=== PATIENT | female | born 1960 | race Caucasian/White ===

== ENCOUNTER → 2017-09-04 | Outpatient (CLI) | payer OTHER | LOC: RAD 00:13 | DX: Z12.31 Encounter for screening mammogram for malignant neoplasm of breast (principal) ==

== ENCOUNTER → 2018-11-25 | Outpatient (CLI) | payer OTHER | LOC: RAD 09:27 | DX: Z12.31 Encounter for screening mammogram for malignant neoplasm of breast (principal) ==

== ENCOUNTER → 2018-12-24 | Outpatient (CLI) | payer OTHER | LOC: RAD 10:28 | DX: R05 Cough (principal) ==

== ENCOUNTER → 2019-01-22 | Outpatient (CLI) | payer OTHER ==
--- NOTE | 2019-01-22 13:49 | 2DMMODE ---
[facility] [place] [address] 2 D/M-MODE ECHOCARDIOGRAM Name: SELVINSTEPHYSONIA CARTER Room #: REG [facility]#: [id number] Admission: 01/22/19 Attend Phys: Kishore Blackburn Discharge: Date of : 60 Date of Service: 01/22/19 1349 Report #: [id number] THIS REPORT FOR: //name// APPROVED REPORT Study performed: 01/22/2019 13:18:28 EXAM: Comprehensive 2D, Doppler, and color-flow Echocardiogram Patient Location: Out-Patient Status: routine BSA: 1.74 HR: 61 bpm BP: 118/80 mmHg Rhythm: NSR/PVCs Other Information Study Quality: Good Indications Syncope. Hx: Atrial tach. 2D Dimensions RVDd: 32.27 mm IVSd: 7.67 (7-11mm) LVOT Diam: 21.09 (18-24mm) LVDd: 43.33 mm PWd: 7.63 (7-11mm) LVDs: 33.83 (25-40mm) Aortic Root: 33.09 mm Volumes Left Atrial Volume (Systole) Single Plane 4CH: 41.32 mL Single Plane 2CH: 41.54 mL LA ESV Index: 26.00 mL/m2 Aortic Valve AoV Peak Jone.: 1.15 m/s AO Peak Gr.: 5.33 mmHg LVOT Max P.68 mmHg LVOT Max V: 0.96 m/s LORENE Vmax: 2.90 cm2 Mitral Valve E/A Ratio: 1.5 MV Decel. Time: 293.00 ms MV E Max Jone.: 0.75 m/s [facility] [address] [place] [address] 2 D/M-MODE ECHOCARDIOGRAM Name: SONIA MONTALVO Room #: [facility]#: [id number] Admission: 01/22/19 Attend Phys: Kishore Blackburn Discharge: Date of : 60 Date of Service: 01/22/19 1349 Report #: [id number] MV A Jone.: 0.49 m/s MV PHT: 84.97 ms IVRT: 92.27 ms Pulmonary Valve PV Peak Jone.: 0.79 m/s PV Peak Gr.: 2.51 mmHg Pulmonary Vein P Vein S: 0.42 m/s P Vein D: 0.37 m/s P Vein S/D Ratio: 1.14 Tricuspid Valve TR Peak Jone.: 2.03 m/s RAP Estimate: 5.00 mmHg TR Peak Gr.: 16.56 mmHg PA Pressure: 22.00 mmHg Left Ventricle The left ventricle is normal size. There is normal LV segmental wall motion. There is normal left ventricular wall thickness. Left ventricular systolic function is normal. LVEF is 55%. The left ventricular diastolic function is normal. Right Ventricle The right ventricle is normal size. The right ventricular systolic function is normal. Atria The left atrium size is normal. The atrial septum is aneurysmal. The right atrium size is normal. There appears to be a prominent eustachian valve orchiari network Aortic Valve The aortic valve is normal in structure. No aortic regurgitation is present. There is no aortic valvular stenosis. Mitral Valve The mitral valve is normal in structure. Trace mitral regurgitation. Tricuspid Valve The tricuspid valve is normal in structure. Mild tricuspid regurgitation. Estimated PAP is 20-25mmHg. Pulmonic Valve The pulmonary valve is normal in structure. Mild pulmonic [facility] [address] [place] [address] 2 D/M-MODE ECHOCARDIOGRAM Name: SONIA MONTALVO Room #: REG [facility]#: [id number] Admission: 01/22/19 Attend Phys: Kishore Blackburn Discharge: Date of : 60 Date of Service: 01/22/19 1349 Report #: [id number] regurgitation. Great Vessels The aortic root is normal in size. Ascending aorta is not well visualized. IVC is normal in size and collapses >50% with inspiration. Pericardium There is no pericardial effusion. <Conclusion> The left ventricle is normal size. LVEF is 55%. The left atrium size is normal. The right atrium size is normal. There appears to be a prominent eustachian valve orchiari network The atrial septum is aneurysmal. The aortic valve is normal in structure. The mitral valve is normal in structure. Trace mitral regurgitation. The tricuspid valve is normal in structure. Mild tricuspid regurgitation. Estimated PAP is 20-25mmHg. The pulmonary valve is normal in structure. Mild pulmonic regurgitation. There is no pericardial effusion. <ELECTRONICALLY SIGNED> By: Glynn Mcduffie MD 01/22/19 1349 1349 1349 Glynn Mcduffie MD /INF
== END ==
LOC: CV 11:03
DX: I08.8 Other rheumatic multiple valve diseases (principal)

== ENCOUNTER → 2019-12-22 | Outpatient (CLI) | payer OTHER | LOC: BC 08:42 | PROVIDERS: ATTEND Obstetrics & Gynecology | DX: Z12.31 Encounter for screening mammogram for malignant neoplasm of breast (principal) ==

== ENCOUNTER → 2020-07-21 | Outpatient (CLI) | payer OTHER | LOC: CAT 09:16 | PROVIDERS: ATTEND Internal Medicine | DX: Z13.6 Encounter for screening for cardiovascular disorders (principal); I25.10 Atherosclerotic heart disease of native coronary artery without angina pectoris; E78.00 Pure hypercholesterolemia, unspecified ==